=== PATIENT | male | born 1985 | race Hispanic/Latino ===

== ENCOUNTER 2017-01-29 12:46 | Observation (INO) | payer OTHER ==
[~2017-01-29] VITALS: Ht 177.8 cm; Wt 119.0 kg
[2017-01-29 12:51] VITALS: BP 134/79; PULSE 92; RESP 15; O2SAT 95
[2017-01-29] MEDS ORDERED: 0.9% Sodium Chloride 1,000 ML IV ONE (12:56)
--- NOTE | 2017-01-29 12:57 | ED.REPORT ---
HPI-Abd Pain M Under 40 Date of Service Jan 29, 2017 ED Provider: Amari Hilario DO Pt is a healthy 31 y/o male presenting to the ED c/o somewhat improving RLQ abdominal pain onset yesterday at 09:00. His pain was somewhat diffuse yesterday and then it localized to the RLQ. He c/o associated anorexia. Pt denies fever, chills, diarrhea, constipation, SOB, cough, sore throat, chest pain. He was seen by his PCP today and recommended to come to the ED for an appendicitis workup. There is no history of previous surgeries. Nursing Notes Stated Complaint: ABDOMINAL PAIN Chief Complaint: Male Abdominal Pain Nursing Notes Reviewed: Yes Allergies: Coded Allergies: No Known Allergies (Verified , 12/01/06) Scheduled PRN Metronidazole (Metronidazole Cream) 45 Gm Cream..g. 1 APPLIC TOP DAILY PRN PRN rosacea Polyethylene Glycol 3350 (Miralax) 17 Gm Powd.pack 17 GM PO DAILY PRN PRN For Constipation oxyCODONE (oxyCODONE) 5 Mg Capsule 5 MG PO QID PRN PRN For Severe Pain General Time Seen by MD: 12:55 Chief Complaint Abdominal pain Hx Obtained From: Patient Arrived By: Walk-in Sudden in Onset?: No Onset Occurred: Yesterday Symptom Duration: Since onset Progression since Onset: Gradually worsening Location: : RLQ Quality: Painful Severity: Current: Moderate Severity: Maximum: Moderate Similar Sx Previous: Yes Past Medical History Past Medical History Healthy Occasional heartburn Past Surgical History Denies Smoking History Never Smoker Social History Alcohol Use: "Social" Drug Use: Denies drug use Ambulatory Status Independent Review of Systems Constitutional: Denies: Chills, Fever Respiratory: Denies: Non-productive cough, Shortness of breath Cardiovascular: Denies: Chest pain GI: Reports: Abdominal pain, Anorexia, Denies: Constipation, Diarrhea Complete sys rev & neg: except as marked. Physical Exam Initial Vital Signs Vital Signs (First) Date Time Temp Pulse Resp B/P Pulse Ox O2 Delivery O2 Flow Rate FiO2 01/29/17 12:51 37 92 15 134/79 95 Room Air Initial VS: Reviewed, Vital signs normal Head / Eyes: Atraumatic, Normocephalic ENT: Mucous membranes moist, Conjunctiva normal Neck: Supple, Full range of motion Extremities: Vascular intact, Neuro intact, No swelling Skin: Warm, Dry, No cyanosis Neurologic: Alert, Oriented, Nonfocal Psychiatric: Mood/affect normal, Behavior normal, Normal thought content General/Constitutional: Awake, Alert, No acute distress, Cooperative, Not toxic appearing Respiratory / Chest: Breath sounds NL, Breath sounds = bilat, No respiratory distress, No rales, No rhonchi, No wheezing, No stridor Cardiovascular: Heart rate NL, Regular rhythm, Heart sounds NL, No murmurs Abdomen: Atraumatic, Soft, No guarding, No rebound, No distention Tenderness/Guarding/Rebound: Positive: Tender RLQ... (Moderate) Positive psoas, obturator, and Rovsing's signs Back: Full range of motion, Painless range of motion Interpretation & Diagnostics Lab Results Interpretation Result Diagram: 01/30/17 0510 01/30/17 0510 Test 01/29/17 13:20 01/29/17 17:13 Lactic Acid Level 1.1mmol/L (0.4-2.0) Magnesium Level 1.9mg/dL (1.6-2.6) Total Bilirubin 0.8mg/dL (0.0-1.2) Aspartate Amino Transf (AST/SGOT) 29U/L (0-50) Alanine Aminotransferase (ALT/SGPT) 80U/L (0-44) Alkaline Phosphatase 44U/L (25-150) Total Protein 7.8g/dL (6.4-8.4) Albumin 4.2g/dL (3.4-5.0) Lipase 15U/L (13-60) Urine Color Yellow (YELLOW) Urine Appearance Clear (CLEAR,HAZY) Urine pH 6.0 (5.0-8.0) Urine Specific [place] 1.005 (1.003-1.035) Urine Protein Negativemg/dL (NEG,TRACE) Urine Glucose (UA) Negativemg/dL (NEGATIVE) Urine Ketones Negativemg/dL (NEGATIVE) Urine Occult Blood Negative (NEGATIVE) Urine Nitrite Negative (NEGATIVE) Urine Bilirubin Negative (NEGATIVE) Urine Urobilinogen Normalmg/dL (NORMAL) Urine Leukocyte Esterase Negative (NEGATIVE) Urine RBC 0-2/hpf (0-2) Urine WBC 0-5/hpf (0-5) Urine Epithelial Cells Occasional/hpf (NONE-MOD) Urine Crystals None seen (NONE SEEN) Urine Bacteria None/hpf (NONE-FEW) Urine Hyaline Casts None/lpf (NONE) Urine Granular Casts None seen (NONE SEEN) Urine Waxy Casts None seen (NONE SEEN) Urine Red Blood Cell Casts None seen (NONE SEEN) Urine White Blood Cell Casts None seen (NONE SEEN) Urine Mucus Present (None Seen) Urine Trichomonas None seen (NONE SEEN) Urine Yeast None (NONE SEEN) Urinalysis Comment None Urine Culture Reflexed Not indicated Laboratory Tests 72 Hours Test 01/29/17 13:20 01/29/17 17:13 White Blood Count 7.0th/mm3 (3.8-10.1) Red Blood Count 5.51mil/mm3 (4.40-5.80) Hemoglobin 16.1g/dL (13.8-17.2) Hematocrit 46.2% (41.0-50.0) Mean Corpuscular Volume 83.8fL (81-100) Mean Corpuscular Hemoglobin 29.2pg (27.0-35.0) Mean Corpuscular Hemoglobin Concent 34.8% (32.0-37.0) Red Cell Distribution Width 12.8% (12.3-15.4) Platelet Count 202bil/L (150-400) Neutrophils (%) (Auto) 67.9% (40-74) Lymphocytes (%) (Auto) 20.9% (14-46) Monocytes (%) (Auto) 9.1% (4-12) Eosinophils (%) (Auto) 1.4% (0-5) Basophils (%) (Auto) 0.3% (0-3) Sodium Level 139mEq/L (134-144) Potassium Level 4.2mEq/L (3.5-5.2) Chloride Level 101mEq/L (97-108) Carbon Dioxide Level 23mmol/L (18-29) Blood Urea Nitrogen 11mg/dL (6-20) Creatinine 0.77mg/dL (0.76-1.27) Estimat Glomerular Filtration Rate 124mL/min (>59) Glucose Level 90mg/dL (60-99) Lactic Acid Level 1.1mmol/L (0.4-2.0) Calcium Level 9.3mg/dL (8.5-10.1) Magnesium Level 1.9mg/dL (1.6-2.6) Total Bilirubin 0.8mg/dL (0.0-1.2) Aspartate Amino Transf (AST/SGOT) 29U/L (0-50) Alanine Aminotransferase (ALT/SGPT) 80U/L (0-44) Alkaline Phosphatase 44U/L (25-150) Total Protein 7.8g/dL (6.4-8.4) Albumin 4.2g/dL (3.4-5.0) Lipase 15U/L (13-60) Urine Color Yellow (YELLOW) Urine Appearance Clear (CLEAR,HAZY) Urine pH 6.0 (5.0-8.0) Urine Specific [place] 1.005 (1.003-1.035) Urine Protein Negativemg/dL (NEG,TRACE) Urine Glucose (UA) Negativemg/dL (NEGATIVE) Urine Ketones Negativemg/dL (NEGATIVE) Urine Occult Blood Negative (NEGATIVE) Urine Nitrite Negative (NEGATIVE) Urine Bilirubin Negative (NEGATIVE) Urine Urobilinogen Normalmg/dL (NORMAL) Urine Leukocyte Esterase Negative (NEGATIVE) Urine RBC 0-2/hpf (0-2) Urine WBC 0-5/hpf (0-5) Urine Epithelial Cells Occasional/hpf (NONE-MOD) Urine Crystals None seen (NONE SEEN) Urine Bacteria None/hpf (NONE-FEW) Urine Hyaline Casts None/lpf (NONE) Urine Granular Casts None seen (NONE SEEN) Urine Waxy Casts None seen (NONE SEEN) Urine Red Blood Cell Casts None seen (NONE SEEN) Urine White Blood Cell Casts None seen (NONE SEEN) Urine Mucus Present (None Seen) Urine Trichomonas None seen (NONE SEEN) Urine Yeast None (NONE SEEN) Urinalysis Comment None Urine Culture Reflexed Not indicated CT Abd / Pelvis Interpretation IMPRESSION: 1. Acute appendicitis without imaging evidence to suggest appendiceal rupture. There is no abscess, free fluid, or bowel obstruction. 2. Degenerative changes of the lower lumbar spine. Dictated by: Caden Sauer M.D. on 01/29/2017 at 14:21 Approved by: Caden Sauer M.D. on 01/29/2017 at 14:26 Study type: Abdominal CT IV contrast, Abdom CT oral contrast Interpretation / Wet Read by: Interpret - Radiologist Re-Eval/Medical Decision Med Decision/Clinical Course No SIRS criteria are present, patient has been nothing by mouth since last evening, appendix is nonperforated by imaging. Patient was treated with cefotetan 2 g in the ER as requested by Dr. Hilliard and he will admit patient for the appropriate treatment Re-Evaluation/Progress : Time of Eval: 16:37 Re-Evaluation/Progress Note: Pt rechecked. Informed pt of need for admission. Pt understands and agrees with plan for admission. All questions addressed. Consultation : Referral / Consult Name: Maral Hilliard MD Consulted With: Surgeon Call Returned at: 16:20 Steel Grinder: Will see patient, Agrees with eval, Agrees with plan, Accepts admit Note: Requests cefotetan. Will evaluate pt in ED. Counseled Regarding: Diagnosis, Lab results, Need for admission Patient Discharge & Departure Primary Impression: Acute appendicitis Acute appendicitis type: unspecified acute appendicitis type Qualified Code: K35.80 - Unspecified acute appendicitis Disposition: ADMITTED TO HOSPITAL Discharge Condition All VS Reviewed: Yes Condition: Stable Scribe Attestation Portions of this note were transcribed by Jone Sanchez. I, Dr. Hilario personally performed the history, physical exam and medical decision-making; I reviewed and confirmed the accuracy of the information in the transcribed note. Amari Hilario DO Jan 29, 2017 12:57 JONE SANCHEZ Jan 29, 2017 13:02
[2017-01-29] MEDS ORDERED: HYDROmorphone 0.5 mg/0.5 mL iSecure Syringe IVPUSH PRN (13:00)
[2017-01-29] MEDS ORDERED: Ondansetron 2 mg/mL 2 mL Inj IVPUSH PRN ×2 (13:00→16:55)
[2017-01-29] MEDS ORDERED: Iohexol 300 mg/mL 30 mL Inj PO ONE (13:00)
[2017-01-29 13:50] LABS: BASOPHILS % (AUTO) 0.3 % (0-3); EOSINOPHILS % (AUTO) 1.4 % (0-5); MONOCYTES % (AUTO) 9.1 % (4-12); Mean Corpuscular Hemoglobin 29.2 pg (27.0-35.0); Mean Corpuscular Volume 83.8 fL (81-100); NEUTROPHILS % (AUTO) 67.9 % (40-74); Platelet Count 202 bil/L (150-400)
[2017-01-29 14:00] LABS: Magnesium 1.9 mg/dL (1.6-2.6)
--- NOTE | 2017-01-29 15:28 | DRSVH ---
PROCEDURE: CT ABDOMEN AND PELVIS WITH CONTRAST ([id number]) INDICATIONS: RLQ abd pain x24 hrs TECHNIQUE: After the administration of oral and intravenous contrast, 5 mm thick sections acquired from the diap hragms to the symphysis. 5 mm thick coronal and sagittal reformats were performed. For radiation do se reduction, the following was used: automated exposure control, adjustment of mA and/or kV accordi ng to patient size. COMPARISON: [facility], CT, ABD/PELVIS W/CON (PN), 12/01/2006, 17:38. FINDINGS: Image quality: Excellent. ABDOMEN: Lung bases: Lung bases are clear. Heart size is normal. Solid organs: The liver, spleen, adrenals, and pancreas are within normal limits and is similar to th e previous exam. 2 vague areas of low-attenuation within the spleen are similar to the previous exam on the upper aspect of the spleen, which are not well characterized on this examination and may repr esent small hemangiomas. Given lack of significant change since 2006, this is felt to be related to a benign process. Kidneys are normal in size. No renal lesions or hydronephrosis is evident. No re nal calculi are seen. Peritoneum and bowel: The stomach, duodenum, and remainder of the small bowel loops are nondilated. Moderate residual stool is identified within the colon. There is no complete bowel obstruction. The appendix is enlarged and measures up to approximately 11 mm in diameter, which is also noted to be f luid-filled. A few areas of high attenuation within the lumen of the appendix is present. There is moderate surrounding inflammation within the adjacent mesentery. Small reactive lymph nodes are seen within it the ileocolic region. No free fluid, loculated fluid collection or free air is evident. Nodes and vessels: No retroperitoneal or mesenteric adenopathy. Aorta and inferior vena cava are no rmal in caliber. Bones: Straightening of the normal lumbar lordosis is present. There are mild to moderate degenerati ve changes of the mid to lower lumbar region. No suspicious osseous lesion or acute fracture is evid ent. PELVIS: Soft tissues: Bladder wall thickness is normal. The ureters are nondilated. The prostate is not en larged. No inguinal hernias or adenopathy. Bones: No suspicious bony lesions. No acute pelvic fractures are identified. Imaged osseous struct ures of the pelvis are within normal limits. IMPRESSION: 1. Acute appendicitis without imaging evidence to suggest appendiceal rupture. There is no abscess, free fluid, or bowel obstruction. 2. Degenerative changes of the lower lumbar spine. Dictated by: Caden Sauer M.D. on 01/29/2017 at 14:21 Approved by: Caden Sauer M.D. on 01/29/2017 at 14:26
[2017-01-29 15:49] VITALS: BP 128/62; PULSE 88
[2017-01-29] MEDS ORDERED: Cefotetan Inj 2,000 MG in IV Premix 1 EACH IV ONE (16:30)
[2017-01-29] MEDS ORDERED: METR45CR TOP (16:54)
[2017-01-29] MEDS ORDERED: MetoCLOpramide 5 mg/mL 2 mL Inj IVPUSH PRN (16:55)
--- NOTE | 2017-01-29 17:05 | PCM.HPSURG ---
Subjective Date of Service: Jan 29, 2017 Referring Provider: Admitting Physician: Primary Care Physician: Florian Alvarez MD Attending Physician: Chief Complaint Abdominal pain History of Present Illness Mr. Vines is a pleasant 31 year old male who presents with 2 days of abdominal pain. He reports that yesterday at 900am he suddenly developed sharp owen-umbilical pain. This pain persisted and became more severe. The pain eventually migrated to his RLQ and has become less severe, but is still rated 6- 7 out of 10. The pain has not gone away since onset, prompting presentation to the ED. He continues to describe the pain as sharp and stabbing, without radiation. He has never experienced similar pain in the past. His notes that the the RLQ of his abdomen is tender to the touch. He denies any associated nausea, vomiting, diarrhea, fevers, chills, or change in urination. No unusual food exposures or sick contacts. He is passing gas and had a normal bowel movement this morning. 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 Hx Alcohol Use: Yes (OCCASIONAL) Hx Substance Use: No Hx Tobacco Use: No PMH HEENT History History of ENT Problems?: No HEENT History: Denies:: Cataracts Dysphagia Sinus Problem Cardiovascular History Cardiovascular History: Denies:: Cardiac Surgery Chest Pain Congestive Heart Failure Edema Heart Murmur Hypertension Irregular Heartbeat Pacemaker Thrombophlebitis Respiratory History of Respiratory Problem: No Respiratory History: Denies:: Asthma COPD Chest Surgery Dyspnea Emphysema Hemoptysis Pneumonia Tuberculosis Neurological History Hx Neurologic Problems?: Yes Neurological History: Positive for:: Headaches (migraine - pt vomits) Seizures (once as a child with a high fever) Denies:: Alzheimer's Disease CVA Dementia Dizziness Parkinson's Disease Gastrointestinal History HX of GI Problems?: Yes Gastrointestinal History: Positive for:: Heartburn Denies:: Diverticulitis Gastrointestinal Bleeding Hepatitis Hiatal Hernia Rectal Bleeding Genitourinary History Hx of Gu Problems?: No Genitourinary History: Denies: Kidney Stones Urinary Tract Infection Musculoskeletal History Musculoskeletal History: Denies:: Back Injury Joint Replacement Musculoskeletal Trauma Psycho Social History Hx of Psycho/Social Problems?: No Psycho Social History: Denies:: Anxiety Bipolar Disorder Hx Depression Other History Other History: Denies:: Cancer Endocrine Disease Hospitalization Thyroid Disease Diabetes: No Social History Hx Alcohol Use: Yes (OCCASIONAL)Hx Substance Use: NoHx Tobacco Use: No Smoking Status: Never Smoker Living Arrangement: with Family Family History Family History: His aunt of colon cancer. There is no other family history of GI malignancy or IBD. H&P Surgical Exam Exam General: Alert, Oriented X3, Cooperative, No Acute Distress Neck: Supple Lungs: Clear to Auscultation, Normal Air Movement Heart: Exam Unremarkable, Regular Rate/Rhythm, Normal S1, Normal S2, No Murmurs /Rubs/Gallops Abdomen: Other (Tender to palpation in the RLQ over McBurney's point. No Rovsings sign. The abdomen is soft and nondistended.) Extremities: Warm Neuro: Grossly Neurologically Intact Catheters: None Diagnostics: CT A/P: The appendix measures up to 11 mm with owen-appendiceal fat stranding. There is no evidence for perforation. Assessment & Plan Assessment This is a 31 year old otherwise healthy male who presents with acute appendicitis which on axial imaging appears to be non-perforated. Plan: I have discussed the natural history of appendicitis with the patient and his family. We discussed the risks and benefits to surgery, including bleeding, infection, damage to adjacent structures, and any untoward effect of anesthesia. We discussed the alternative to surgery, being treatment with antibiotics alone. He has consented to proceed to the operating room and we will work towards that as soon as there is OR availability this evening. In the interim, he will be admitted for IV antibiosis, fluids, and pain management. He will remain strictly NPO. He understands that if we discover that his appendix is perforated he may require a prolonged hospitalization. It was a pleasure meeting Mr. Vines today. Gigi Diaz MD Jan 29, 2017 17:05
[2017-01-29] MEDS ORDERED: Piperacillin-Tazo 3.375 Gm Inj 3.375 GM in Dextrose 5% Minibag Plus 50 ML IV ONE (17:15)
[2017-01-29 17:28] LABS: APPEARANCE,URINE CLEAR (CLEAR,HAZY); COLOR,URINE YELLOW (YELLOW); OCCULT BLOOD,URINE NEGATIVE (NEGATIVE); UROBILINOGEN,URINE NORMAL (NORMAL)
[2017-01-29] MEDS: Dextrose 5% Lactated Ringer's 1,000 ML IV SCH (17:40)
[2017-01-29 17:49] VITALS: BP 160/74; PULSE 88; RESP 14; O2SAT 99
[2017-01-29] MEDS: HYDROmorphone 1 mg/mL Inj IVPUSH PRN ×2 (17:50→20:57)
[2017-01-29 18:34] VITALS: BP 149/70; PULSE 81; RESP 16; O2SAT 95
--- NOTE | 2017-01-29 19:16 | NUR ---
Admit Patient admitted to room 1001 for appendicitis who will go to surgery tonight for appendectomy. Patient oriented to room. Report given to oncoming nurse .
[2017-01-29 19:55] VITALS: BP 144/84; PULSE 80; RESP 17; O2SAT 96
[2017-01-29] MEDS ORDERED: Piperacillin-Tazo 3.375 Gm Inj 3.375 GM in Dextrose 5% Minibag Plus 50 ML IV SCH (22:00)
[2017-01-29] MEDS ORDERED: HYDROmorphone PCA 0.2 mg/mL 30 mL Inj - Standard IV PRN (22:55)
[2017-01-29 23:28] VITALS: RESP 17; O2SAT 96
[2017-01-30] VITALS (9 sets, daily range): BP systolic 129–160; BP diastolic 50–77; PULSE 78–96; RESP 13–18; O2SAT 93–96
--- NOTE | 2017-01-30 02:39 | NUR ---
PAIN/HEADACHE: During initial assessment pt. resting in bed requesting pain medication for h/a. Mild abdominal pain. Medicated with 1 mg of IV Dilaudid. Later on received call from OR to inform that Pt's surgery has been rescheduled for tomorrow 01/30/17 at 0730. Pt. cont. to be NPO for OR Sat. New orders. 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 Placed on cont. pulse ox. Pt. and family informed reg. surgery for tomorrow am. On going care.
[2017-01-30] MEDS: Dextrose 5% Lactated Ringer's 1,000 ML IV SCH (02:53)
[2017-01-30 05:55] LABS: BASOPHILS % (AUTO) 0.6 % (0-3); EOSINOPHILS % (AUTO) 0.8 % (0-5); Mean Corpuscular Hemoglobin 29.4 pg (27.0-35.0); Mean Corpuscular Volume 85.3 fL (81-100); NEUTROPHILS % (AUTO) 62.9 % (40-74); Platelet Count 195 bil/L (150-400)
--- NOTE | 2017-01-30 07:03 | NUR ---
Pt off unit Pt to O.R. at 0628. Family with pt.
--- NOTE | 2017-01-30 07:29 | PCM.HPANE ---
Patient Data Date of Service: Jan 30, 2017 Surgeon Admitting Provider:Tiffany Kenney DO Attending Provider:Tiffany Kenney DO Primary Care Physician:Florian Alvarez MD Other Provider: Reason for Visit Acute Appy Ht/WT & BMI Height (Feet): 5 Height (Inches): 10.00 Weight (Kilograms): 119.000 Body Mass Index 37.50 Allergies Coded Allergies: No Known Allergies (Verified , 12/01/06) Past Anesthesia History Anesthesia History: Denies:: Anesthesia Reactions (has never had ) Diabetes History Hx Diabetes?: No MRSA MRSA: No Medications Hypertension Medication: No Home Meds Incl Beta Vivien: No Reported Medications Metronidazole (Metronidazole Cream)45 Gm Cream..g.1 Applic TOP DAILY PRN rosacea #45 01/29/17 History History of ENT Problems?: Yes HEENT History: Positive for:: Sinus Problem (seasonal allergies ) Denies:: Cataracts Dysphagia Glaucoma Denture Type: None Teeth Condition: Within Normal Limits Hx of Heart Problems?: No Cardiovascular History: Denies:: Cardiac Surgery Chest Pain Congestive Heart Failure Coronary Artery Disease Edema Heart Murmur Hypertension Irregular Heartbeat Pacemaker Thrombophlebitis Other Cardiac History: denies [place] Hx of Respiratory Problem?: No Respiratory History: Denies:: Asthma COPD Chest Surgery Dyspnea Emphysema Hemoptysis Pneumonia Tuberculosis Use of Inhalers / NEBS Hx Neurologic Problems?: Yes Neurological History: Positive for:: Headaches (? migraines ) Seizures (febrile seizure as a child - no recurrence/outgrew) Denies:: Alzheimer's Disease CVA Dementia Dizziness Parkinson's Disease TIA Other Neurological Pertinent: no current DEAN Hx of GI Problems?: Yes Gastrointestinal History: Denies:: Gastroesphageal Reflux Other GI Pertinent History: 1 admission for abd pain 10 yrs ago Hx of Problems?: No Genitourinary History: Denies:: HX of Hemodialysis Kidney Stones Urinary Tract Infection HX of Peritoneal Dialysis: No Male Hx: Denies:: Prostate Problems Scrotal Mass Testicular Surgery Skin History: Denies:: History Skin Disorders? Pressure Ulcers Hx Musculoskeletal Problems?: Yes Musculoskeletal History: Positive for:: Back Injury (denies radiculopathy/ neuropathy) Denies:: Joint Replacement Musculoskeletal Trauma Hx of Psycho/Social Problems?: No Psycho Social History: Denies:: Anxiety Bipolar Disorder Hx Depression Suicide Attempt Hx Surgeries?: No Other History: Positive for:: Hospitalization (abd pain 10 years ago overnight stay) Denies:: Cancer Endocrine Disease Thyroid Disease History Blood Transfusions: Denies:: Accept Blood Products? 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 Hx Alcohol Use: Yes (ocassional )Hx Substance Use: No Smoking Status: Never Smoker Have You Smoked inLast 12 mo: No Stop/Bang Treated for Sleep Apnea?: No Do You Have a CPAP Machine?: No S-Snoring: Do You Snore Loudly: Yes T-Tired: feel tired, fatigued: No O-Obsered: Observed not breath: No P-Blood Pressure: treated: No B- Body Mass Index > 35 kg/m2: Yes A- Age over 50: No N- Neck Large Circumference: Yes G- Gender Male: Yes NOY Total Score: 5 NOY Risk Assessment: High Risk, =/>3 Yes NOY Category 2: Yes Risk Assessment Category Category 1A: Patient has history of documented sleep apnea, and HAS NOT received any narcotic, sedative or anesthesia administration during this stay. Category 1B: Patient has history of documented sleep apnea, and HAS received any narcotic , sedative or anesthesia administration during this stay Category 2: Patient has SUSPECTED Obstructive Sleep Apnea, and HAS received any narcotic , sedative or anesthesia administration during this stay. Category 3: Patient has SUSPECTED Obstructive Sleep Apnea and HAS NOT received narcotic, sedative or anesthesia administration during this stay. Category 4: Outpatient in Procedural Areas with known sleep apnea or who screen positive for High Risk via the STOP/BANG questionnaire. Exam Exam Vital Signs Vital Signs Date Time Temp Pulse Resp B/P Pulse Ox O2 Delivery O2 Flow Rate FiO2 01/30/17 04:49 37.3 81 17 144/73 95 Room Air 01/30/17 00:04 37.2 78 17 133/72 96 Room Air General Appearance: Alert, Oriented X3, Cooperative, No Acute Distress HEENT/AIRWAY: MP 2, Neck Movement (FROM), Mouth Opening (3), Other (TMD3) Lungs: Clear to Auscultation, Normal Air Movement Heart: Exam Unremarkable, Regular Rate/Rhythm, Normal S1, Normal S2, No Murmurs /Rubs/Gallops Meds/Labs/Diagnostics Admission Meds Current Medications Sodium Chloride (Normal Saline) 1,000 ml @ 0 mls/hr Q0M ONCE IV Last administered on 01/29/17 12:56; Start 01/29/17 at 12:56; Stop 01/29/17 at 12:59 ; Status DC Iohexol 9000 mg 9,000 mg ONCE ONCE PO Last administered on 01/29/17 13:31; Start 01/29/17 at 13:00; Stop 01/29/17 at 13:01; Status DC Cefotetan Disodium/Dextrose 2000 mg/Premix 50 ml @ 100 mls/hr ONCE ONCE IV Last administered on 01/29/17 16:36; Start 01/29/17 at 16:30; Stop 01/29/17 at 16:59; Status DC Dextrose/Lactated Ringer's 1,000 ml @ 100 mls/hr Q10H IV Last administered on 01/29/17 17:40; Start 01/29/17 at 16:53 Piperacillin Sod/ Tazobactam Sod 3.375 gm/Dextrose/ Water 50 ml @ 12.5 mls/hr Q8 IV Last administered on 01/29/17 23:27; Start 01/29/17 at 22:00 Piperacillin Sod/ Tazobactam Sod 3.375 gm/Dextrose/ Water 50 ml @ 100 mls/hr ONCE ONCE IV Last administered on 01/29/17 18:01; Start 01/29/17 at 17:15; Stop 01/29/17 at 17:44; Status DC Dextrose/Water (D5W) 500 ml @ 25 mls/hr Q20H IV Last administered on 23:26; Start 01/29/17 at 22:55 Labs Test 01/29/17 13:20 01/29/17 17:13 01/30/17 05:10 Lactic Acid Level 1.1mmol/L (0.4-2.0) Magnesium Level 1.9mg/dL (1.6-2.6) Total Bilirubin 0.8mg/dL (0.0-1.2) Aspartate Amino Transf (AST/SGOT) 29U/L (0-50) Alanine Aminotransferase (ALT/SGPT) 80U/L (0-44) Alkaline Phosphatase 44U/L (25-150) Total Protein 7.8g/dL (6.4-8.4) Albumin 4.2g/dL (3.4-5.0) Lipase 15U/L (13-60) Urine Color Yellow (YELLOW) Urine Appearance Clear (CLEAR,HAZY) Urine pH 6.0 (5.0-8.0) Urine Specific Carson 1.005 (1.003-1.035) Urine Protein Negativemg/dL (NEG,TRACE) Urine Glucose (UA) Negativemg/dL (NEGATIVE) Urine Ketones Negativemg/dL (NEGATIVE) Urine Occult Blood Negative (NEGATIVE) Urine Nitrite Negative (NEGATIVE) Urine Bilirubin Negative (NEGATIVE) Urine Urobilinogen Normalmg/dL (NORMAL) Urine Leukocyte Esterase Negative (NEGATIVE) Urine RBC 0-2/hpf (0-2) Urine WBC 0-5/hpf (0-5) Urine Epithelial Cells Occasional/hpf (NONE-MOD) Urine Crystals None seen (NONE SEEN) Urine Bacteria None/hpf (NONE-FEW) Urine Hyaline Casts None/lpf (NONE) Urine Granular Casts None seen (NONE SEEN) Urine Waxy Casts None seen (NONE SEEN) Urine Red Blood Cell Casts None seen (NONE SEEN) Urine White Blood Cell Casts None seen (NONE SEEN) Urine Mucus Present (None Seen) Urine Trichomonas None seen (NONE SEEN) Urine Yeast None (NONE SEEN) Urinalysis Comment None Urine Culture Reflexed Not indicated White Blood Count 6.5th/mm3 (3.8-10.1) Red Blood Count 5.03mil/mm3 (4.40-5.80) Hemoglobin 14.8g/dL (13.8-17.2) Hematocrit 42.9% (41.0-50.0) Mean Corpuscular Volume 85.3fL (81-100) Mean Corpuscular Hemoglobin 29.4pg (27.0-35.0) Mean Corpuscular Hemoglobin Concent 34.5% (32.0-37.0) Red Cell Distribution Width 12.9% (12.3-15.4) Platelet Count 195bil/L (150-400) Neutrophils (%) (Auto) 62.9% (40-74) Lymphocytes (%) (Auto) 23.2% (14-46) Monocytes (%) (Auto) 12.0% (4-12) Eosinophils (%) (Auto) 0.8% (0-5) Basophils (%) (Auto) 0.6% (0-3) Sodium Level 136mEq/L (134-144) Potassium Level 4.3mEq/L (3.5-5.2) Chloride Level 98mEq/L (97-108) Carbon Dioxide Level 26mmol/L (18-29) Blood Urea Nitrogen 12mg/dL (6-20) Creatinine 0.96mg/dL (0.76-1.27) Estimat Glomerular Filtration Rate 96mL/min (>59) Glucose Level 109mg/dL (60-99) Calcium Level 9.4mg/dL (8.5-10.1) Plan Impression Patient chart reviewed, patient interviewed and anesthestic plan with risks, benefits, and alternatives discussed, and informed consent obtained. NPO per Anesth. Guidelines: Yes ASA Physical Status: ASA1 Normal Healthy Anesthetic Plan: GA Bene/Risks/Altern/Consents: Yes HP Complete Prior to Induction: Yes Nito Eddy MD Jan 30, 2017 07:29
[2017-01-30] MEDS ORDERED: Lactated Ringer's 1,000 ML IV ONE ×2 (07:36→09:19)
[2017-01-30] MEDS ORDERED: Bupivacaine-MPF 0.5% 30 mL Inj INFILTRATE ONE (08:07)
[2017-01-30] MEDS ORDERED: Lactated Ringer's 1,000 ML IV SCH (08:09)
[2017-01-30] MEDS ORDERED: Lactated Ringer's 500 ML IV PRN (08:09)
[2017-01-30] MEDS ORDERED: Phenylephrine 10,000 mCg/mL Inj IVPUSH PRN (08:10)
[2017-01-30] MEDS ORDERED: MetoCLOpramide 5 mg/mL 2 mL Inj IVPUSH PRN ×2 (08:10→10:30)
[2017-01-30] MEDS ORDERED: HYDROmorphone 1 mg/mL Inj IVPUSH PRN ×2 (08:10→11:25)
[2017-01-30] MEDS ORDERED: EPHEDrine Sulfate 50 mg/mL Inj IVPUSH PRN (08:10)
[2017-01-30] MEDS ORDERED: fentaNYL-PF 50 mCg/mL 2 mL Inj IVPUSH PRN (08:10)
[2017-01-30] MEDS ORDERED: Ondansetron 2 mg/mL 2 mL Inj IVPUSH PRN ×2 (08:10→10:30)
[2017-01-30] MEDS ORDERED: Dexamethasone 4 mg/mL Inj IVPUSH PRN (08:10)
[2017-01-30] MEDS ORDERED: Dextrose 5% Lactated Ringer's 1,000 ML IV SCH (10:27)
[2017-01-30] MEDS ORDERED: Acetaminophen IV 1,000 MG in IV Premix 1 EACH IV SCH (10:30)
[2017-01-30] MEDS ORDERED: Sodium Chloride LOK Flush 10 mL Syringe IVFLUSH PRN (10:30)
--- NOTE | 2017-01-30 10:41 | PCM.DISURG ---
Surgical Discharge Instruction Date of Service Jan 30, 2017 Dates of Hospitalization Date of Hospital Admission Jan 29, 2017 at 17:36 Providers Admitting Physician: Tiffany Kenney DO Primary Care Physician: Florian Alvarez MD Attending Physician: Tiffany Kenney DO Discharge Diagnosis Discharge Diagnosis Primary Diagnosis: 1. Acute appendicitis 2. Status post laparoscopic appendectomy Other Medical History: GERD No Reported Past Surgical History Nonsmoker Diet Discharge Diet: No restrictions Activity Discharge Activity-General: Activity as pain allows, No lifting >15 pounds for 2 weeks Dressing and Incisional Care Dressing Care: Allow Steri Stripes to fall off (or remove in 1 week) Hygiene: May shower, DO NOT soak incision under water, Other (My remove Band- Aids in 2-3 days) Additional Instructions Additional Instructions Recommend oxycodone 5 mg 1-2 tabs by mouth every 6 hours when necessary for severe pain & dispense 15 tablets; otherwise take OTC analgesics as directed when necessary. Follow Up Plan Follow Up Plan Follow-up in Outpatient General [facility] in 2-3 weeks for wound check & reevaluation. Follow-up Provider (F9): Dunia Hyman PAC Follow-up appointment: Weeks (2-3) Call your provider for: Fever, Chills, Shortness of breath, Increasing abdominal pain, Nausea, Vomiting, Wound redness, Increasing wound pain, Warmth to touch, Discharge @ incision, pus discharge Additional Information Additional Information The patient may discharge home today 01/30/2017 from a General Surgery standpoint if he is able to tolerate a general diet, exhibit signs of bowel function, ambulating independently, surgical pain is adequately controlled with minimum analgesics; & is otherwise physically clear for discharge as determined by his attending provider. Abdi Ndiaye PA-C Jan 30, 2017 10:41
[2017-01-30] MEDS ORDERED: 0.9% Sodium Chloride 250 ML ONE (11:37)
--- NOTE | 2017-01-30 14:35 | NUR ---
Social Work- Brief Note/ Readiness for Discharge Data: EMR reviewed. Pt is a 31 year old male admitted [facility] for acute appy per H&P. Pt discussed in multidisciplinary rounds, surgery is primary. No SW orders received. Pt's insurance is [employer]. Pt's PCP is Florian Alvarez MD. Pt's readmit risk score is 0. SW met with pt at bedside regarding d/c plan, SW role explained. Pt alert and oriented x3. Pt's capacity for care assessed. Pt resides in [place] with his parents where he is independent at baseline with ADLs and self-care. Pt works and drives. Pt has no DPOA on file, declined information. Pt to discharge home with his parents to transport via POV. No d/c needs. SW wrote phone number and plan on whiteboard. All agreeable to plan. Assessment: Pt who is independent at baseline with ADLs and self-care Plan: Pt to discharge home with his parents to transport via POV. No d/c needs. SW will follow. Audrey Brennan MSW
[2017-01-30] MEDS ORDERED: OXYC5CAP4 PO (14:54)
--- NOTE | 2017-01-30 15:03 | PCM.DC.SUR ---
Discharge Summary Date of Service: Jan 30, 2017 Date of Hospital Admission: Jan 29, 2017 at 17:36 Date of Operation(s): 01/30/2017 Date of Discharge: 01/30/2017 Diagnosis at Time of Discharge Discharge Diagnosis Primary Diagnosis: 1. Acute appendicitis 2. Status post laparoscopic appendectomy Other Medical History: GERD No Reported Past Surgical History Nonsmoker Problems: Operation Laparoscopic appendectomy Brief History and Physical: Mr. Vines is a pleasant 31 year old male who presents with 2 days of abdominal pain. He reports that yesterday at 900am he suddenly developed sharp owen-umbilical pain. This pain persisted and became more severe. The pain eventually migrated to his RLQ and has become less severe, but is still rated 6- 7 out of 10. The pain has not gone away since onset, prompting presentation to the ED. He continues to describe the pain as sharp and stabbing, without radiation. He has never experienced similar pain in the past. His notes that the the RLQ of his abdomen is tender to the touch. He denies any associated nausea, vomiting, diarrhea, fevers, chills, or change in urination. No unusual food exposures or sick contacts. He is passing gas and had a normal bowel movement this morning. Hospital Course: The patient was admitted with a history, presentation, & workup consistent with the above diagnosis and underwent the above-mentioned surgical procedure without complication. See operative report for details of the procedure. After surgery the patient convalesced appropriately. There are postsurgical recovery was uneventful. Signs of bowel function returned on day of surgery. The patient was stable for discharge home on the day of surgery if he was able to tolerate dinner. With the time of discharge the patient will avoid without difficulty, exhibiting signs of bowel function, tolerating a normal diet without nausea or vomiting, with pain well-controlled on minimal analgesics, ambulating without assistance, with clean, dry, & intact surgical wounds without signs of significant infection, inflammation, &/or hematoma. We discussed & the patient verbalizes understanding all of the postoperative care & medication instructions, follow-up, & when seek immediate medical attention. All questions were answered. Pathology: Pending Disposition: Home in stable condition on day of surgery. Follow-up Plan: Follow-up with physician offset assistant press operator in outpatient general surgery clinic in 1 week for wound check & reevaluation. Metronidazole (Metronidazole Cream) 45 Gm Cream..g. 1 APPLIC TOP DAILY PRN PRN rosacea (Reported) oxyCODONE (oxyCODONE) 5 Mg Capsule 5 MG PO QID PRN PRN For Severe Pain Discharge Medications: See above. Abdi Ndiaye PA-C Jan 30, 2017 15:03
[2017-01-30] MEDS ORDERED: POLY17PO6 PO (15:27)
--- NOTE | 2017-01-30 16:23 | NUR ---
Social Work- Discharge Data: Pt to d/c home with his parents to transport via POV. No d/c needs. Assessment: Pt who is independent at baseline with ADLs and self-care Plan: Pt to discharge home with his parents to transport via POV. No d/c needs. SARAH BETH Yu
[2017-01-30] MEDS ORDERED: Propofol 10,000 mCg/mL 20 mL Inj ONE (16:27)
[2017-01-30] MEDS ORDERED: Dexamethasone 4 mg/mL Inj ONE (16:27)
[2017-01-30] MEDS ORDERED: Ondansetron 2 mg/mL 2 mL Inj ONE (16:27)
[2017-01-30] MEDS ORDERED: fentaNYL-PF 50 mCg/mL 2 mL Inj ONE (16:27)
[2017-01-30] MEDS ORDERED: Succinylcholine Chloride 20 mg/mL 5 mL Inj ONE ×2 (16:27)
[2017-01-30] MEDS ORDERED: HYDROmorphone 1 mg/mL Inj ONE (16:27)
[2017-01-30] MEDS ORDERED: MetoCLOpramide 5 mg/mL 2 mL Inj ONE (16:27)
--- NOTE | 2017-01-30 16:59 | NUR ---
Discharge Pt discharged to home with family via private vehicle at 1630 hrs. PIV removed intact. Pain controlled. Dressings clean, dry and intact. All personal possessions sent with pt. Instructed pt on wound care and signs of infection. Pt expressed verbal understanding. Follow up instructions given along with surgery clinic phone # so pt can make appointment.
[2017-01-31] MEDS ORDERED: Polyethylene Glycol (PEG) 17 Gm Powder PO SCH (08:30)
--- NOTE | 2017-01-31 10:34 | PCM.SURGPO ---
Immediate Operative Note Date of Surgery: Jan 31, 2017 Pre Operative Diagnosis acute appendicitis Post Operative Diagnosis acute nonperforated appendicitis Procedure laparoscopic appendectomy Surgeon and Land Appraiser Surgeon: Maral Hilliard MD Assistants: SUHAIL Ackerman & Mary Armando, Findings Retrocecal appendicitis Complications There were no periprocedural complications identified. Surgical Specimen Removed: Yes Specimen sent to Pathology: Yes Anesthetic Administered: GA Grafts, Implants: None Output, Estimated Blood Loss: 5 Blood Admin during surgery: No Attending Statement Inspector Watch Train listed was medically necessary for the successful completion of the case Maral Hilliard MD Jan 31, 2017 10:34
--- NOTE | 2017-01-31 11:11 | OP ---
[address] [address] OPERATIVE REPORT PATIENT: THERESE HIGGINS : 1985 MR#: [id number] ADMIT: 01/29/2017 JOB ID: [id number] DATE OF SURGERY: 01/30/2017 PREOPERATIVE DIAGNOSIS(ES): Acute appendicitis. POSTOPERATIVE DIAGNOSIS(ES): Acute nonperforated appendicitis. PROCEDURE PERFORMED: Laparoscopic appendectomy. SURGEON: Maral Hilliard MD. KIT PLANNER: 1. Abdi Ndiaye PA-C. 2. Mary Armando DO. COMPLICATIONS: None. CONDITION: The patient is stable. INDICATIONS: The patient is a 31-year-old gentleman who presented with two days of abdominal pain. He was evaluated in the ED, had a normal white count, but CT was consistent with appendicitis. After discussing the risks, benefits and alternatives, he was brought to the operating room for laparoscopic appendectomy. He has been on preoperative antibiotics while he was in the hospital. PROCEDURE DETAILS: He was placed in a supine position. Underwent smooth induction of general anesthesia, had a Broderick catheter placed. Abdomen was prepped and draped in the usual sterile fashion. Surgical time-out was undertaken using safety checklist, and all were in agreement. I began by making an infraumbilical incision, entered the abdomen using the Optiview trocar. I then placed two 5 mm ports, one in the suprapubic and one in the left lower quadrant location and placed the patient in Trendelenburg position with right side up. Given the thickness of the abdominal wall, we had to upsize to longer ports. After that I identified an inflamed appendix in the right lower quadrant and mobilized it sharply from the retroperitoneum. I also mobilized a little bit of the terminal ileum for better visualization. I then visualized the appendiceal base where it connects to the cecum and created a window around it, but I did not have a good angle to be able to divide it at this point. I proceeded to divide the mesoappendix with electrocautery making sure I was a safe distance away from the ileum. After mobilizing the appendix all the way to the base, I divided the appendiceal base with a 45 mm Endo-BIANCA stapler, placed in an EndoCatch bag and removed it through the umbilical port site. I then irrigated and suctioned out all the fluid from the right lower quadrant and the pelvis, closed the umbilical port fascia with [id number] 0-Vicryl suture. The skin was closed with 4-0 Monocryl. Steri-Strips and sterile dressing were applied. The patient was recovered from anesthesia and was taken to the recovery room in stable condition. PERLA
--- NOTE | 2017-02-04 16:27 | PATH ---
SURGICAL PATHOLOGY Attending Physician:Maral Hilliard MD CASE STATUS: Signed Out PATIENT NAME: THERESE HIGGINS PID: [id number] : 1985 DATE COLLECTED:01/30/2017 00:00 SPECIMEN: Appendix CLINICAL HISTORY: ACUTE APPENDICITIS, EXCISION 1). APPENDIX FINAL DIAGNOSIS: Appendix, Appendectomy: Acute appendicitis with serositis. Negative for neoplasm. ICD10: K35.80 GROSS DESCRIPTION: The specimen is received in formalin, labeled with the patient's name, sublabeled as appendix, and consists of an intact appendix (length-6.0 cm, diameter-1.0) with attached mesoappendix (up to 1.5 cm in depth). The resection margin is received stapled. The serosa is sotelo smooth, shiny, and partially covered in sotelo flaky friable exudate. The lumen contains pedraza-white solid soft material. The wall is up to 0.3 cm thick. No nodules, masses or lesions are identified. Ink code: black-resection margin. Section code: (A) appendix, serially sectioned, inbound customer service representative, resection margin enface; (B) tip, bivalved, one half submitted. 01/31/17 ICD-9 CODES: CPT CODES: 1: 68217 Electronically Signed Out Daniel Leyva MD, Ph.D. [facility] Pathology [facility] [address], [place] [address] Technical component performed at [facility], [facility] [address], [place], [address]
== END 2017-01-30 16:28 | disposition home or self-care (01) ==
LOC: SED 12:46 → OSC 17:36
PROVIDERS: ADMIT Student in an Organized Health Care Education/Training Program; ATTEND Student in an Organized Health Care Education/Training Program
DX: K35.80 Unspecified acute appendicitis (principal); R12 Heartburn
CPT/HCPCS: 36415; 44970; 74177; 80048; 80053; 81000; 83605; 83690; 83735; 85025; 87040; 96361; 96365; 96366; 96367; 96375; 96376; 99285; G0378; J0131; J0330; J1100; J1170; J2250; J2405; J2543; J2704; J2765; J3010; J7030; J7050; J7060; J7120; Q9967